=== PATIENT | male | born 1985 | race Two or more races ===

== ENCOUNTER 2019-04-14 20:53 | Emergency (ER) | payer OTHER ==
[~2019-04-14] VITALS: Ht 175.3 cm; Wt 79.4 kg
[~2019-04-14 20:53] MED LIST: DOLOGESIC 500-1 EACH PO; INTESTINEX680 MG PO; LEVAQUIN750 MG PO; OSEL75CA PO; TUSSI PRES-B L120 M1 PO
[2019-04-14] MEDS ORDERED: SKELAXIN800 MG PO (23:36)
[2019-04-14] MEDS ORDERED: PREDNISONE20 MG PO (23:36)
== END 2019-04-15 00:41 | disposition home or self-care (01) ==
LOC: ER 20:53
DX: S83.92XA Sprain of unspecified site of left knee, initial encounter (principal); X50.0XXA Overexertion from strenuous movement or load, initial encounter; Y93.67 Activity, basketball; Y92.89 Other specified places as the place of occurrence of the external cause; Y99.8 Other external cause status

== ENCOUNTER → 2022-10-15 | Emergency (ER) | payer OTHER ==
[~2022-10-15] VITALS: Ht 180.3 cm; Wt 86.2 kg
[~2022-10-15] MED LIST changes: +PREDNISONE20 MG PO; +SKELAXIN800 MG PO
== END | disposition home or self-care (01) ==
LOC: ER 16:51
DX: S01.322A Laceration with foreign body of left ear, initial encounter (principal); W22.8XXA Striking against or struck by other objects, initial encounter; Y93.89 Activity, other specified; Y92.832 Beach as the place of occurrence of the external cause; Z88.2 Allergy status to sulfonamides; Z88.6 Allergy status to analgesic agent

== ENCOUNTER 2022-10-27 10:51 | Emergency (ER) | payer OTHER ==
[~2022-10-27] VITALS: Ht 180.3 cm; Wt 86.2 kg
== END 2022-10-27 12:06 | disposition home or self-care (01) ==
LOC: ER 10:51
DX: Z48.02 Encounter for removal of sutures (principal); Z88.2 Allergy status to sulfonamides; Z88.6 Allergy status to analgesic agent